=== PATIENT | male | born 1930 | race Two or more races ===

== ENCOUNTER 2017-01-12 10:29 | Inpatient (IN) | payer MEDICARE, OTHER ==
[~2017-01-12] VITALS: Ht 182.9 cm; Wt 70.3 kg
--- NOTE | 2017-01-12 10:40 | NUR ---
PT BIB RA 82, C/O MID STERNAL CHEST PAIN 30 MINS PATTERNMAKER METAL BENCH. AT BS FOR INFO. PER PT HE FELT TINGLING ON BILATERAL SHOULDER AND ARMS, PAIN RADIATING TO THE BACK. ALSO C/O HEADACHE. IV ACCESS PATTERNMAKER METAL BENCH. SEEN BY MD FOR EVAL. VSS. NITRO AND ASA GIVEN ON THE FIELD. SAFETY AND COMFORT MEASURES PROVIDED. WILL MONITOR.
[2017-01-12] MEDS ORDERED: ATEN25TA PO (10:50)
[2017-01-12] MEDS ORDERED: MEMA10TA PO (10:50)
[2017-01-12] MEDS ORDERED: SIMV20TA6 PO (10:50)
[2017-01-12] MEDS ORDERED: PRAM0.253 PO (10:50)
[2017-01-12] MEDS ORDERED: RIVA1PAT3 TD (10:50)
[2017-01-12] MEDS ORDERED: LEVE1000 PO (10:50)
[2017-01-12] MEDS ORDERED: CARB-93 PO (10:50)
[2017-01-12] MEDS ORDERED: PANT40TA4 PO (10:50)
[2017-01-12] MEDS ORDERED: NIFE30TA89 PO (10:50)
[2017-01-12] MEDS ORDERED: GLIP2.5T3 PO (10:50)
[2017-01-12] MEDS ORDERED: FINA5TAB11 PO (10:50)
[2017-01-12 11:04] LABS: BASOPHILS # (AUTO) 0.1 /CMM (0.0-0.2); BASOPHILS % (AUTO) 1.9 % (0.0-2.0); EOSINOPHILS # (AUTO) 0.1 /CMM (0.0-0.7); EOSINOPHILS % (AUTO) 2.8 % (0.0-6.0); HEMATOCRIT 31 % (39-51); HEMOGLOBIN 10.2 g/dL (13.5-17.5); LYMPHOCYTES # (AUTO) 1.4 /CMM (0.8-4.8); LYMPHOCYTES % (AUTO) 29.4 % (20.0-44.0); MEAN CORPUSCULAR HEMOGLOBIN 31 PG (26.0-33.0); MEAN CORPUSCULAR HGB CONC 33 g/dl (31.0-36.0); MEAN CORPUSCULAR VOLUME 94 fL (80-96); MONOCYTES # (AUTO) 0.3 /CMM (0.1-1.30); MONOCYTES % (AUTO) 5.8 % (2.0-12.0); NEUTROPHILS # (AUTO) 2.8 /CMM (1.8-8.9); NEUTROPHILS % (AUTO) 60.1 % (43.0-81.0); PLATELET COUNT (AUTO) 105 /CMM (150-450); RDW COEFFICIENT OF VARIATION 15.1 (11.5-15.0); RED BLOOD CELL COUNT(AUTO) 3.29 MIL/uL (4.5-6.0); WHITE BLOOD COUNT (AUTO) 4.7 K/uL (4.3-11.0)
--- NOTE | 2017-01-12 11:10 | NUR ---
PT MEDICATED ORDERED. VSS
[2017-01-12 11:14] LABS: CARBON DIOXIDE 30 mmol/L (21-32); CHLORIDE 106 mmol/L (98-107); CREATININE 1.3 mg/dL (0.6-1.3); GLUCOSE 135 mg/dL (74-106); POTASSIUM 3.6 mmol/L (3.5-5.1); SODIUM SERUM 142 mmol/L (136-145); UREA NITROGEN, BLOOD 16 mg/dL (7-18)
[2017-01-12 11:19] LABS: ALANINE AMINOTRANSFERASE 8 U/L (12-78); ALBUMIN 3.1 g/dL (3.4-5.0); ALKALINE PHOSPHATASE 70 U/L (46-116); ASPARTATE AMINOTRANSFERASE 18 U/L (15-37); BILIRUBIN,DIRECT 0.1 mg/dL (0.0-0.2); BILIRUBIN,TOTAL 0.3 mg/dL (0.2-1.0); TOTAL PROTEIN, SERUM 7.3 g/dL (6.4-8.2)
[2017-01-12] MEDS ORDERED: NITROGLYCERIN 0.4 MG/TAB BOTTLE ONE (11:20)
[2017-01-12] MEDS ORDERED: NITROGLYCERIN 0.4 MG/TAB BOTTLE SL ONE (11:30)
[2017-01-12] MEDS ORDERED: IV NS 0.9% 500 ML BAG IV ONE (11:30)
[2017-01-12 11:31] LABS: INR 1.09 (0.87-1.13); PROTHROMBIN TIME 11.3 SECS (9.5-12.7)
[2017-01-12 11:45] LABS: TROPONIN I < 0.017 ng/mL (0.00-0.056)
--- NOTE | 2017-01-12 11:57 | NUR ---
MARILYNN PAGED, JAYESH GALLEGOS FERMENTER WINE
[2017-01-12] MEDS ORDERED: AZITHROMYCIN 500 MG in IV D5W 250 ML IV ONE (12:00)
--- NOTE | 2017-01-12 12:02 | NUR ---
REPORT GIVEN TO JULIANA DOWD FOR CONTINUITY OF CARE ON TELEMETRY UNIT
--- NOTE | 2017-01-12 12:28 | NUR ---
CALLED RADIOLOGY DEPARTMENT TO INFORM THEM WANTS PT TO HAVE A STAT ECHO
[2017-01-12] MEDS ORDERED: HEPARIN INFUSION/D5W 500 ML IV PRN (12:30)
--- NOTE | 2017-01-12 12:50 | NUR ---
ECHO DONE AT BS.
--- NOTE | 2017-01-12 13:10 | NUR ---
Patient is resting comfortably in bed with eyes closed. Easily aroused. VSS
--- NOTE | 2017-01-12 14:50 | NUR ---
PT TRANSFERRED TO TELE FLOOR PER PROTOCOL.
--- NOTE | 2017-01-12 15:15 | NUR ---
RN INITIAL NOTE RECEIVED REPORT FROM KOSTA DOWD ER. PT TRANSFERRED VIA GURNEY. PT A/O X3 NO C/O CHEST PAIN. WILL BEGIN ASSESSMENT AND CORE MEASURES. DAUGHTER JEANNE @ BEDSIDE. WILL CONTINUE TO MONITOR CLOSELY.
--- NOTE | 2017-01-12 15:24 | NUR ---
RN NOTE MD GAVE TELEPHONE ORDER FOR CARDIAC DIET FOR DINNER.
[2017-01-12 15:31] VITALS: BP 147/79
[2017-01-12] MEDS ORDERED: Z GUARD REMEDY 2 OZ OINT TP PRN (16:00)
[2017-01-12] MEDS ORDERED: ACETAMINOPHEN 325 MG TABLET PO PRN (16:00)
[2017-01-12] MEDS ORDERED: ONDANSETRON HCL/PF 4 MG/2 ML VIAL IVP PRN (16:00)
--- NOTE | 2017-01-12 16:16 | NUR ---
RN NOTE HEPARIN DRIP BEGUN . VERIFIED DOSE WITH JOSE RAFAEL DOWD . NO CHEST PAIN.
--- NOTE | 2017-01-12 17:00 | NUR ---
RN NOTE PT PULLED OUT IV ACCESS. UNABLE TO INSERT NEW ONE. RECEIVED ORDER FROM JAYESH GALLEGOS FOR INSERTION. HEPARIN ON HOLD FOR NOW.
[2017-01-12] MEDS: NITROGLYCERIN PACKET 1 GM PACKET TOP SCH (17:51)
[2017-01-12] MEDS: CARBIDOPA/LEVODOPA 25/100 MG 1 UDTAB PO SCH (17:58)
--- NOTE | 2017-01-12 19:30 | NUR ---
RN INITIAL NOTES RECEIVED REPORT FROM NOEMÍ BELLO. AMANDA MIDLINE G20 INSERTED WITH GOOD BLOOD RETURN, TOLERATED PROCEDURE WELL. HEPARIN GTT TO BE RESTARTED ORDERED AT 1050u/hr AT 21ml/hr. PATIENT IS SR ON TELE WITH HR OF 78. PATIENT DENIES ANY PAIN AND DISCOMFORT. NO ACUTE DISTRESS. PATIETN'S NEEDS ANTICIPATED AND MET. SAFETY AND COMFORT ENSURED. BED IN LOW AND LOCKED POSITION. CALL LIGHT IN REACH. FALL PRECAUTION OBSERVED AT ALL TIMES. WILL MONITOR.
--- NOTE | 2017-01-12 19:45 | NUR ---
RN CLOSING NOTE WALKED OVER TO JAYESH GALLEGOS OFFICE. EXPLAINED PT MIDLINE INSERTED. ORDERED PTT/INR TO BE REDRAWN STAT IN 6 HOURS FROM RESTART TIME. THE 45 MINUTES OF INFUSION OF HEPARIN ARE NO LONGER COUNTED. REPORTED TO CARLA KITCHEN NURSE. PT A/O X3 NO CHEST PAIN THROUGH OUT MY SHIFT. CALLED PHARMACY AND SPOKE TO BONITA AND REPORTED ISSUE WITH HEPARIN. PT ON RA. PT CLEAN AND DRY. ALL SAFETY MEASURES IN PLACE.
[2017-01-12 20:00] VITALS: BP 163/78
[2017-01-12] MEDS: SIMVASTATIN 20 MG TABLET PO SCH (21:25)
[2017-01-12] MEDS: LEVETIRACETAM (250 MG) 250 MG TABLET PO SCH (21:25)
--- NOTE | 2017-01-12 22:50 | NUR ---
RN NOTES ENDORSED PATIENT'S CARE TO NOEMÍ ESCOBAR. PATIENT ON HEPARIN GTT AT 1050u/hr. SLEEPING COMFORTABLY AND EASILY AROUSABLE WITH VERBAL AND TACTILE STIMULI. NO DISTRESS. REMAINS SR ON TELE.
--- NOTE | 2017-01-12 23:05 | NUR ---
RN NOTES RECEIVED PT IN BED, RESTING COMFORTABLY AT THIS TIME, AROUSES EASILY. A/O X 3. VERBALLY RESPONSIVE. HEPARIN GTT INFUSING ORDERED AT 1050u/hr AT 21ml/hr. PATIENT IS SR ON TELE WITH HR OF 68. PATIENT DENIES ANY PAIN AND DISCOMFORT. NO ACUTE DISTRESS. PATIENT'S NEEDS ANTICIPATED AND MET. SAFETY AND COMFORT ENSURED. BED IN LOW AND LOCKED POSITION. CALL LIGHT IN REACH. FALL PRECAUTION OBSERVED AT ALL TIMES. WILL CONTINUE TO MONITOR.
[2017-01-13] VITALS (7 sets, daily range): BP systolic 115–156; BP diastolic 37–67
[2017-01-13] MEDS: NITROGLYCERIN PACKET 1 GM PACKET TOP SCH ×4 (01:21→18:00)
[2017-01-13 02:08] LABS: BASOPHILS % (AUTO) 0.2 % (0.0-2.0); EOSINOPHILS # (AUTO) 0.2 /CMM (0.0-0.7); EOSINOPHILS % (AUTO) 2.7 % (0.0-6.0); HEMATOCRIT 32 % (39-51); HEMOGLOBIN 10.8 g/dL (13.5-17.5); LYMPHOCYTES # (AUTO) 2.7 /CMM (0.8-4.8); LYMPHOCYTES % (AUTO) 48.3 % (20.0-44.0); MEAN CORPUSCULAR HEMOGLOBIN 32 PG (26.0-33.0); MEAN CORPUSCULAR HGB CONC 34 g/dl (31.0-36.0); MEAN CORPUSCULAR VOLUME 94 fL (80-96); MONOCYTES # (AUTO) 0.4 /CMM (0.1-1.30); MONOCYTES % (AUTO) 7.7 % (2.0-12.0); NEUTROPHILS # (AUTO) 2.3 /CMM (1.8-8.9); NEUTROPHILS % (AUTO) 41.1 % (43.0-81.0); PLATELET COUNT (AUTO) 97 /CMM (150-450); RDW COEFFICIENT OF VARIATION 15.7 (11.5-15.0); RED BLOOD CELL COUNT(AUTO) 3.42 MIL/uL (4.5-6.0); WHITE BLOOD COUNT (AUTO) 5.7 K/uL (4.3-11.0)
[2017-01-13 02:27] LABS: ALANINE AMINOTRANSFERASE 17 U/L (12-78); ALBUMIN 3.2 g/dL (3.4-5.0); ALKALINE PHOSPHATASE 71 U/L (46-116); ASPARTATE AMINOTRANSFERASE 18 U/L (15-37); BILIRUBIN,TOTAL 0.3 mg/dL (0.2-1.0); CALCIUM, SERUM 8.2 mg/dL (8.5-10.1); CARBON DIOXIDE 32 mmol/L (21-32); CHLORIDE 106 mmol/L (98-107); CREATININE 1.1 mg/dL (0.6-1.3); GLUCOSE 89 mg/dL (74-106); MAGNESIUM 1.7 mg/dL (1.8-2.4); PHOSPHORUS 3.6 mg/dL (2.5-4.9); POTASSIUM 3.7 mmol/L (3.5-5.1); SODIUM SERUM 144 mmol/L (136-145); TOTAL PROTEIN, SERUM 7.4 g/dL (6.4-8.2); UREA NITROGEN, BLOOD 12 mg/dL (7-18)
[2017-01-13 02:30] LABS: INR 1.08 (0.87-1.13); PROTHROMBIN TIME 11.6 SECS (9.5-12.7)
[2017-01-13 03:03] LABS: CHOLESTEROL 86 mg/dL (<200); HDL CHOLESTEROL 43 mg/dL (40-60); LDL 35 mg/dL (0-99); THYROID STIMULATING HORMONE 3.122 uIU/mL (0.358-3.74); TRIGLYCERIDES 52 mg/dL (30-150)
[2017-01-13 05:55] LABS: EOSINOPHILS % (MANUAL) 3 % (0-4); LYMPHOCYTES % (MANUAL) 52 % (16-48); MONOCYTES % (MANUAL) 6 % (0-11.0); NEUTROPHILS % (MANUAL) 39 (42-76)
--- NOTE | 2017-01-13 07:01 | NUR ---
RN NOTES PT IN BED, RESTING COMFORTABLY AT THIS TIME, AROUSES EASILY. A/O X 3. VERBALLY RESPONSIVE. AMANDA MIDLINE INTACT AND PATENT. PATIENT IS SR ON TELE WITH HR OF 68. PATIENT DENIES ANY PAIN AND DISCOMFORT. NO ACUTE DISTRESS. PATIENT'S NEEDS ANTICIPATED AND MET. SAFETY AND COMFORT ENSURED. BED IN LOW AND LOCKED POSITION. CALL LIGHT IN REACH. FALL PRECAUTION OBSERVED AT ALL TIMES. WILL ENDORSE TO NEXT SHIFT FOR GAUTAM.
--- NOTE | 2017-01-13 07:51 | NUR ---
LOCKSTITCHER NOTES RECEIVED PT SLEEPING IN BED, RESTING COMFORTABLY AROUSES TO VERBAL STIMULI. NO ACUTE DISTRESS NOTED, NO S/S OF PAIN/DISCOMFORT. RESPIRATIONS EVEN AND UNLABORED, ON 02 2L VIA NC. AMANDA MIDLINE INTACT AND PATENT INFUSING HEPARIN AT 900 UNITS/HR WITH NO S/S OF COMPILATIONS NOTED. NEXT PTT DRAW SCHEDULED AT 0900AM PER DEPUTY CHIEF MAGISTRATE REPORT. PER TELE SR HR OF 69, SAFETY AND COMFORT ENSURED. BED IN LOW AND LOCKED POSITION. CALL LIGHT IN REACH. WILL CONTINUE TO MONITOR.
[2017-01-13] MEDS: glipiZIDE XL 2.5 MG TAB.OSM.24 PO SCH (08:36)
[2017-01-13] MEDS: FINASTERIDE (5 MG) 5 MG TABLET PO SCH (08:36)
[2017-01-13] MEDS: MEMANTINE HCL 5 MG TABLET PO SCH (08:37)
[2017-01-13] MEDS: PANTOPRAZOLE 40 MG TABLET.DR PO SCH (08:37)
[2017-01-13] MEDS: LEVETIRACETAM (250 MG) 250 MG TABLET PO SCH ×2 (08:38→21:15)
[2017-01-13] MEDS: CARBIDOPA/LEVODOPA 25/100 MG 1 UDTAB PO SCH ×3 (08:38→17:25)
[2017-01-13] MEDS: ATENOLOL 25 MG TABLET PO SCH (08:38)
[2017-01-13] MEDS: NIFEdipine XL (30MG) 30 MG TAB PO SCH (08:38)
[2017-01-13] MEDS: RIVASTIGMINE TARTRATE 4.6 MG PATCH.TD24 TD SCH (08:39)
[2017-01-13] MEDS ORDERED: PANTOPRAZOLE 40 MG TABLET.DR PO SCH (09:00)
[2017-01-13] MEDS ORDERED: ASPIRIN EC 81 MG TABLET.DR PO SCH (09:00)
[2017-01-13 09:23] LABS: INR 1.06 (0.87-1.13); PROTHROMBIN TIME 11.4 SECS (9.5-12.7)
--- NOTE | 2017-01-13 09:30 | NUR ---
TELE/RN NOTES 0900 PTT LEVEL DRAW OF 42. HEPARIN DRIP ADJUSTED BY 150UNITS INCREASE OF CURRENT RATE. 900UNITS/HR INCREASED TO 1050UNITS PER HOUR. STRAIGHTEDGE MAN WITNESS WHEN CHANGES MADE. NEXT PTT LEVEL DRAW SCHEDULED 1530.
[2017-01-13] MEDS: Magnesium 1GM/D5W 100ML PREMIX 100 ML IV SCH ×2 (12:28→16:57)
--- NOTE | 2017-01-13 14:30 | NUR ---
MS/RN NOTES HEPARIN DRIP DISCONTINUED AND SOPPED PER GAMBLING COUNSELLOR. NO S/S OF COMPLICATIONS NOTED.
--- NOTE | 2017-01-13 19:16 | NUR ---
MS/RN NOTES PATIENT RESTING IN BED COMFORTABLY, AT BEDSIDE. NO SIGNIFICANT CHANGES NOTED, APPEARS STABLE. VITAL SIGNS WITHIN NORMAL LIMITS. ALL DUE MEDS GIVEN, ALL NEEDS MET AND ATTENDED. SAFETY MEASURES RENDERED, PLAN OF CARE DISCUSSED AND AGREED. WILL ENDORSE CARE TO TAPEMAN FOR GAUTAM.
--- NOTE | 2017-01-13 19:20 | NUR ---
MS/RN NOTES RECEIVED PT. SITTING UP IN BED. AWAKE, ALERT AND ORIENTED X3. BREATHING EVEN AND UNLABORED ON ROOM AIR. NO SOB, RESPIRATORY DISTRESS OR COMPLAINTS OF PAIN NOTED AT THIS TIME. PT. DENIES ANY CHEST PAIN. PT. WITH LEFT UPPER ARM MIDLINE PRESENT, PATENT AND INTACT. PT. WITH FAMILY PRESENT AT BEDSIDE. BED IN LOWEST POSITION, CALL LIGHT WITHIN REACH, SIDE RAILS UP X2, WILL CONTINUE TO MONITOR.
[2017-01-13] MEDS: SIMVASTATIN 20 MG TABLET PO SCH (21:15)
--- NOTE | 2017-01-14 00:38 | NUR ---
MS/RN NOTES PT. REFUSING NITROBID MEDICATION STATING HE DOES NOT HAVE ANY CHEST PAIN. EDUCATED PT. ON IMPORTANCE OF MEDICATION. PT. VERBALIZED UNDERSTANDING AND CONTINUES TO REFUSE STATES " I JUST WANT TO SLEEP, I DON'T HAVE ANY PAIN, MAYBE I'LL TAKE IT IN THE MORNING". PT. DENIES ANY CHEST PAIN, APPEARS COMFORTABLE AT THE MOMENT. WILL CONTINUE TO MONITOR.
[2017-01-14 04:00] VITALS: BP 148/57
[2017-01-14] MEDS: NITROGLYCERIN PACKET 1 GM PACKET TOP SCH ×3 (06:17→11:38)
--- NOTE | 2017-01-14 06:24 | NUR ---
MS/RN NOTES PT. IS LYING IN BED RESTING. BREATHING EVEN AND UNLABORED ON ROOM AIR. NO SOB, RESPIRATORY DISTRESS OR COMPLAINTS OF PAIN NOTED AT THIS TIME. PT. DENIES ANY CHEST PAIN AT THIS TIME AND THROUGHOUT SHIFT. PT. WITH LEFT UPPER ARM MIDLINE PRESENT, PATENT AND INTACT. ALL PT. NEEDS MET. BED IN LOWEST POSITION, CALL LIGHT WITHIN REACH, SIDE RAILS UP X2, WILL ENDORSE TO DAYSHIFT NURSE FOR CONTINUITY OF CARE.
[2017-01-14 06:55] LABS: CALCIUM, SERUM 8.1 mg/dL (8.5-10.1); CARBON DIOXIDE 32 mmol/L (21-32); CHLORIDE 106 mmol/L (98-107); CREATININE 1.1 mg/dL (0.6-1.3); GLUCOSE 87 mg/dL (74-106); MAGNESIUM 2.1 mg/dL (1.8-2.4); POTASSIUM 4.3 mmol/L (3.5-5.1); SODIUM SERUM 143 mmol/L (136-145); UREA NITROGEN, BLOOD 19 mg/dL (7-18)
[2017-01-14 08:00] VITALS: BP 148/57
--- NOTE | 2017-01-14 08:00 | NUR ---
AM RN NOTES RECEIVED PT RESTING IN BED, IN STABLE CONDITION, NO SOB OR DISTRESS NOTED, NO CHEST PAIN OR DISCOMFORT, PROVIDED WITH BREAKFAST WILL MONITOR.
[2017-01-14] MEDS: PANTOPRAZOLE 40 MG TABLET.DR PO SCH (08:49)
[2017-01-14] MEDS: MEMANTINE HCL 5 MG TABLET PO SCH (08:49)
[2017-01-14] MEDS: CARBIDOPA/LEVODOPA 25/100 MG 1 UDTAB PO SCH ×2 (08:49→12:38)
[2017-01-14] MEDS: LEVETIRACETAM (250 MG) 250 MG TABLET PO SCH (08:49)
[2017-01-14] MEDS: FINASTERIDE (5 MG) 5 MG TABLET PO SCH (08:50)
[2017-01-14] MEDS: NIFEdipine XL (30MG) 30 MG TAB PO SCH (08:50)
[2017-01-14] MEDS: glipiZIDE XL 2.5 MG TAB.OSM.24 PO SCH (08:50)
[2017-01-14] MEDS: RIVASTIGMINE TARTRATE 4.6 MG PATCH.TD24 TD SCH (08:51)
[2017-01-14] MEDS: ATENOLOL 25 MG TABLET PO SCH (08:55)
[2017-01-14] MEDS ORDERED: ASPIRIN EC 81 MG TABLET.DR PO SCH (09:00)
[2017-01-14 10:05] VITALS: BP 148/57
[2017-01-14 11:38] VITALS: BP 88/48
[2017-01-14] MEDS ORDERED: ASPI81TA2 PO (12:41)
--- NOTE | 2017-01-14 15:27 | NUR ---
PT DISCHARGED HOME IN STABLE CONDITION, NO CHEST PAIN OR DISCOMFORT NOTED, NO SOB OR DISTRESS, INSTRUCTIONS GIVEN TO PT AND FAMILY, EDUCATION DONE WELL, PT ACCOMPANIED BY ASSET PROTECTION GREETER AND LEFT HOME WITH HIS DAUGHTER AND SAFELY VIA PRIVATE CAR.
[2017-01-18] MEDS ORDERED: PRAMIPEXOLE DI-HCL 0.25 MG TABLET PO SCH (16:00)
== END 2017-01-14 15:22 | disposition home or self-care (01) | DRG 311 ==
LOC: ER 10:32 → TELE1 11:58 → MEDSG1 01-13 15:27
PROVIDERS: ADMIT Nurse Practitioner Acute Care; ATTEND Nurse Practitioner Acute Care
PROC: 05H633Z Insertion of Infusion Device into Left Subclavian Vein, Percutaneous Approach (ICD-10-PCS; principal; 2017-01-12)
DX: I24.9 Acute ischemic heart disease, unspecified (principal); I50.33 Acute on chronic diastolic (congestive) heart failure; J98.11 Atelectasis; Z95.2 Presence of prosthetic heart valve; Z82.49 Family history of ischemic heart disease and other diseases of the circulatory system; N40.0 Benign prostatic hyperplasia without lower urinary tract symptoms; I35.1 Nonrheumatic aortic (valve) insufficiency; E11.9 Type 2 diabetes mellitus without complications; D69.6 Thrombocytopenia, unspecified; D63.8 Anemia in other chronic diseases classified elsewhere; E78.5 Hyperlipidemia, unspecified; G20 Parkinson's disease; Z86.73 Personal history of transient ischemic attack (TIA), and cerebral infarction without residual deficits; I11.0 Hypertensive heart disease with heart failure
CPT/HCPCS: 36415; 71010-TC; 80048-TC; 80053-TC; 80061-TC; 80076-TC; 83605-TC; 83735-TC; 83880; 84100-TC; 84443-TC; 84484-TC; 85025-TC; 85610-TC; 85730-TC; 87040-TC; 87081-TC; 93307-TC; A4606; A6403; J0456; J1644; J3475; J7040; J7060; Z7610